=== PATIENT | male | born 1995 | race Caucasian/White ===

== ENCOUNTER 2017-01-16 22:27 | Emergency (ER) | payer BC, OTHER ==
[~2017-01-16] VITALS: Ht 175.3 cm; Wt 83.0 kg
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
--- OUTSIDE RECORDS SUMMARY | 2017-01-16 22:34 | XMS REPORT ---
Author Author LIZZY MCKNIGHT [facility] Address [address] [place], [place] [id number] Care Team Providers Care Branch Manager Name Role Phone LIZZY MCKNIGHT PCP Unavailable [...] oral route once daily for 10 days erythromycin-benzoyl peroxide 3-5 % topical gel 04/02/2015 apply to the affected area(s) by topical route 2 times per day in the morning and evening Name Start Date Expiration Date SIG Comments [...] CVX Meningococcal 12/07/2012 sanofi pasteur PMC Menactra [id number] Intramuscular Left Deltoid 12/07/2012 02/07/2011 136 HPV 12/07/2012 Merck & Co., Inc. MSD GARDASIL [id number] Intramuscular Right Deltoid 12/07/2012 09/10/2012 62 HPV 02/14/2013 [employer]ck [employer] Co[employer] MSD GARDASIL [id number] Intramuscular Right Deltoid 02/14/2013 06/18/2011 62 History [...] Group Number Start Date [facility] [place] [id number] April [facility] [place] void Friday, 2012 [facility] [place] void Friday, 2007 History of Encounters Visit Date Visit Type Provider 03/06/2015 Office visit LIZZY MCKNIGHT STITCHER SPECIAL MACHINE 09/14/2014 Office visit LIZZY MCKNIGHT STITCHER SPECIAL MACHINE 06/12/2014 Office visit LIZZY MCKNIGHT STITCHER SPECIAL MACHINE 06/17/2013 Office visit LIZZY MCKNIGHT STITCHER SPECIAL MACHINE 02/14/2013 Nurse visit LIZZY MCKNIGHT STITCHER SPECIAL MACHINE 12/07/2012 Nurse visit LIZZY MCKNIGHT STITCHER SPECIAL MACHINE 11/17/2012 Office visit LIZZY MCKNIGHT STITCHER SPECIAL MACHINE 11/08/2012 Office visit LIZZY MCKNIGHT STITCHER SPECIAL MACHINE 06/30/2012 Office visit LIZZY MCKNIGHT STITCHER SPECIAL MACHINE 06/09/2012 Office visit LIZZY MCKNIGHT STITCHER SPECIAL MACHINE 03/22/2012 Office visit LIZZY MCKNIGHT STITCHER SPECIAL MACHINE 02/23/2012 Office visit LIZZY MCKNIGHT STITCHER SPECIAL MACHINE 12/11/2011 Office visit LIZZY MCKNIGHT STITCHER SPECIAL MACHINE 11/28/2011 Office visit LIZZY MCKNIGHT STITCHER SPECIAL MACHINE 03/03/2011 Office visit LIZZY MCKNIGHT STITCHER SPECIAL MACHINE 02/28/2011 Office visit LIZZY MCKNIGHT STITCHER SPECIAL MACHINE 01/23/2011 Nurse visit Lizzy Mcknight STITCHER SPECIAL MACHINE 12/23/2010 Office visit Lizzy Mcknight STITCHER SPECIAL MACHINE 11/14/2010 Office visit Lizzy Mcknight STITCHER SPECIAL MACHINE 09/06/2010 Office visit Lizzy Mcknight STITCHER SPECIAL MACHINE 07/08/2010 Office visit Lizzy Mcknight STITCHER SPECIAL MACHINE 05/02/2010 Office visit Lizzy Mcknight STITCHER SPECIAL MACHINE 01/10/2010 Office visit Lizzy Mcknight STITCHER SPECIAL MACHINE
--- OUTSIDE RECORDS SUMMARY | 2017-01-16 22:34 | XMS REPORT ---
Author Author Lizzy Mcknight [facility] Address [address] [place], [place] [id number] Care Team Providers Care Filter Tank Operator Name Role Phone Lizzy Mcknight PCP Unavailable Allergies and Adverse Reactions Name Reaction Notes NO KNOWN DRUG ALLERGIES Plan of Treatment Not available. Medications Name Start Date Expiration Date SIG Comments Amoxicillin Oral Capsule 500 mg 01/21/2010 01/31/2010 take 1 capsule (500 mg) by oral route every 8 hours for 10 days Ocuflox Ophthalmic Drops 0.3 % 07/08/2010 apply 1 drop into affected eye(s ) by ophthalmic route every 4 hours for 2 days then 1 drop four times daily for 5 days Amoxicillin Oral Tablet 875 mg 07/12/2010 07/22/2010 take 1 tablet (875 mg) by oral route every 12 hours for 10 days nystatin Topical Powder 100,000 unit/g 09/06/2010 apply to the affected area(s) by topical route 2 times per day terbinafine Oral Tablet 250 mg 09/06/2010 09/20/2010 take 1 tablet by oral route daily for 14 days cefdinir Oral Capsule 300 mg 11/28/2011 12/08/2011 take 1 capsule (300 mg) by oral route every 12 hours for 10 days Singulair Oral tablet, chewable 5 mg 12/03/2011 chew 1 tablet by oral route daily cefdinir Oral capsule 300 mg 12/11/2011 12/18/2011 take 1 capsule by oral route 2 times a day for 7 days Bactrim DS Oral tablet 800-160 mg 02/23/2012 03/04/2012 take 1 tablet by oral route every 12 hours for 10 days cefdinir Oral capsule 300 mg 03/22/2012 04/01/2012 take 1 capsule (300 mg) by oral route every 12 hours for 10 days Polytrim Ophthalmic Drops 0.1-10,000 %-unit/mL 06/09/2012 instill 2 drops into both eyes by ophthalmic route every 4 hours Silvadene Topical Cream 1 % 06/28/2012 apply a 116 inch (1.5 mm) thick layer to entire burn area by topical route 2 times per day fluticasone Nasal [place], Suspension 50 mcg/actuation 11/17/2012 inhale 1 spray (50 mcg) in each nostril by intranasal route 2 times per day amoxicillin-pot clavulanate Oral tablet 875-125 mg 11/17/2012 11/27/2012 take 1 tablet by oral route every 12 hours for 10 days prednisone oral tablet 10 mg 06/17/2013 50mg PO QD x 4 days, 30mg PO QD x 4 days, 10mg PO QD x4 days prednisone oral tablet 20 mg 06/12/2014 60mg PO QD x 4 days then, 40mg PO QD x 3 days then, 20mg PO QD x 3 days Discontinued Name Start Date Discontinued Date SIG Comments Singulair Oral Tablet, Chewable 5 mg 05/02/2010 chew 2 tablets (10 mg) by oral route once daily in the evening Zyrtec Oral Tablet 10 mg 05/02/2010 Problem List Description Status Onset Allergic rhinitis Active Brain Injury Active Vital Signs Date Time BP-Sys(mm[Hg] BP-Susan(mm[Hg]) HR(bpm) RR(rpm) Temp WT HT HC BMI BSA BMI Percentile O2 Sat(%) 06/12/2014 1:32:00 PM 116 mmHg 60 mmHg 54 bpm 18 rpm 97.5 F 176 lbs 100 % 06/17/2013 10:37:00 AM 116 mmHg 68 mmHg 52 bpm 20 rpm 96.9 F 158 lbs 100 % 11/17/2012 11:06:00 AM 90 mmHg 52 mmHg 55 bpm 18 rpm 97.8 F 147 lbs 66 in 23.7262 kg/m 1.76 m2 86.2 % 98 % 11/08/2012 2:42:00 PM 110 mmHg 62 mmHg 62 bpm 20 rpm 97.2 F 147 lbs 66 in 23.73 kg/m2 1.7621 m 86.2 % 99 % 06/30/2012 3:47:00 PM 116 mmHg 60 mmHg 87 bpm 18 rpm 97.8 F 141 lbs 65.5 in 23.1065 kg/m 1.72 m2 84.5 % 99 % 06/09/2012 1:36:00 PM 118 mmHg 64 mmHg 77 bpm 18 rpm 96.8 F 141 lbs 63.5 in 24.58 kg/m2 1.6928 m 90.7 % 98 % 03/22/2012 3:48:00 PM 116 mmHg 64 mmHg 74 bpm 18 rpm 96.8 F 139 lbs 98 % 02/23/2012 4:44:00 PM 100 mmHg 68 mmHg 72 bpm 18 rpm 97.2 F 134 lbs 63.5 in 23.36 kg/m2 1.6502 m 87.1 % 98 % 12/11/2011 2:05:00 PM 98 mmHg 67 mmHg 67 bpm 18 rpm 97.8 F 127 lbs 63 in 22.4968 kg/m 1.60 m2 83.6 % 98 % 11/28/2011 8:10:00 AM [...] X-RAY EXAM RIBS UNI 2 VIEWS Reviewed 12/07/2012 12:00 AM IMMUNIZATION ADMIN Reviewed 12/07/2012 12:00 AM HPV VACCINE 4 VALENT IM Reviewed 12/07/2012 12:00 AM MENINGOCOCCAL VACCINE IM Reviewed 02/14/2013 12:00 AM IMMUNIZATION ADMIN Reviewed 02/14/2013 12:00 AM HPV VACCINE 4 VALENT IM Reviewed 05/02/2010 12:00 AM X-RAY EXAM [...] CVX Meningococcal 12/07/2012 sanofi pasteur PMC Menactra [id number] Intramuscular Left Deltoid 12/07/2012 02/07/2011 136 HPV 12/07/2012 Merck & Co., Inc. MSD GARDASIL [id number] Intramuscular Right Deltoid 12/07/2012 09/10/2012 62 HPV 02/14/2013 [employer]ck [employer] Co[employer] MSD GARDASIL [id number] Intramuscular Right Deltoid 02/14/2013 06/18/2011 62 History [...] Nevus 2014 6:55AM Allergic rhinitis 2014 6:55AM Payers Insurance Name Company Name Plan Name Plan Number Policy Number Policy Group Number Start Date [facility] [id number] April [facility] Friday, 2012 [facility] Friday, 2007 History of Encounters Visit Date Visit Type Provider 09/14/2014 Office visit LIZZY MCKNIGHT MILL REPRESENTATIVE 06/12/2014 Office visit LIZZY MCKNIGHT MILL REPRESENTATIVE 06/17/2013 Office visit LIZZY MCKNIGHT MILL REPRESENTATIVE 02/14/2013 Nurse visit LIZZY MCKNIGHT MILL REPRESENTATIVE 12/07/2012 Nurse visit LIZZY MCKNIGHT MILL REPRESENTATIVE 11/17/2012 Office visit LIZZY MCKNIGHT MILL REPRESENTATIVE 11/08/2012 Office visit LIZZY MCKNIGHT MILL REPRESENTATIVE 06/30/2012 Office visit LIZZY MCKNIGHT MILL REPRESENTATIVE 06/09/2012 Office visit LIZZY MCKNIGHT MILL REPRESENTATIVE 03/22/2012 Office visit LIZZY MCKNIGHT MILL REPRESENTATIVE 02/23/2012 Office visit LIZZY MCKNIGHT MILL REPRESENTATIVE 12/11/2011 Office visit LIZZY MCKNIGHT MILL REPRESENTATIVE 11/28/2011 Office visit LIZZY MCKNIGHT MILL REPRESENTATIVE 03/03/2011 Office visit LIZZY MCKNIGHT MILL REPRESENTATIVE 02/28/2011 Office visit LIZZY MCKNIGHT MILL REPRESENTATIVE 01/23/2011 Nurse visit Lizzy Mcknight MILL REPRESENTATIVE 12/23/2010 Office visit Lizzy Mcknight MILL REPRESENTATIVE 11/14/2010 Office visit Lizzy Mcknight MILL REPRESENTATIVE 09/06/2010 Office visit Lizzy Mcknight MILL REPRESENTATIVE 07/08/2010 Office visit Lizzy Mcknight MILL REPRESENTATIVE 05/02/2010 Office visit Lizzy Mcknight MILL REPRESENTATIVE 01/10/2010 Office visit Lizzy Mcknight MILL REPRESENTATIVE
--- OUTSIDE RECORDS SUMMARY | 2017-01-16 22:34 | XMS REPORT ---
Author Author LIZZY MCKNIGHT [facility] Address [address] [place], [place] [id number] Care Team Providers Care Film Composer Name Role Phone LIZZY MCKNIGHT PCP Unavailable [...] CVX Meningococcal 12/07/2012 sanofi pasteur PMC Menactra [id number] Intramuscular Left Deltoid 12/07/2012 02/07/2011 136 HPV 12/07/2012 Merck & Co., Inc. MSD GARDASIL [id number] Intramuscular Right Deltoid 12/07/2012 09/10/2012 62 HPV 02/14/2013 Merck & Co., Inc[employer] MSD GARDASIL [id number] Intramuscular Right Deltoid 02/14/2013 06/18/2011 62 History [...] Group Number Start Date [facility] [place] [id number] April [facility] [place] void Friday, 2012 [facility] [place] void Friday, 2007 History of Encounters Visit Date Visit Type Provider 03/06/2015 Office visit LIZZY MCKNIGHT AUDOGRAPH OPERATOR 09/14/2014 Office visit LIZZY MCKNIGHT AUDOGRAPH OPERATOR 06/12/2014 Office visit LIZZY MCKNIGHT AUDOGRAPH OPERATOR 06/17/2013 Office visit LIZZY MCKNIGHT AUDOGRAPH OPERATOR 02/14/2013 Nurse visit LIZZY MCKNIGHT AUDOGRAPH OPERATOR 12/07/2012 Nurse visit LIZZY MCKNIGHT AUDOGRAPH OPERATOR 11/17/2012 Office visit LIZZY MCKNIGHT AUDOGRAPH OPERATOR 11/08/2012 Office visit LIZZY MCKNIGHT AUDOGRAPH OPERATOR 06/30/2012 Office visit LIZZY MCKNIGHT AUDOGRAPH OPERATOR 06/09/2012 Office visit LIZZY MCKNIGHT AUDOGRAPH OPERATOR 03/22/2012 Office visit LIZZY MCKNIGHT AUDOGRAPH OPERATOR 02/23/2012 Office visit LIZZY MCKNIGHT AUDOGRAPH OPERATOR 12/11/2011 Office visit LIZZY MCKNIGHT AUDOGRAPH OPERATOR 11/28/2011 Office visit LIZZY MCKNIGHT AUDOGRAPH OPERATOR 03/03/2011 Office visit LIZZY MCKNIGHT AUDOGRAPH OPERATOR 02/28/2011 Office visit LIZZY MCKNIGHT AUDOGRAPH OPERATOR 01/23/2011 Nurse visit Lizzy Mcknight AUDOGRAPH OPERATOR 12/23/2010 Office visit Lizzy Mcknight AUDOGRAPH OPERATOR 11/14/2010 Office visit Lizzy Mcknight AUDOGRAPH OPERATOR 09/06/2010 Office visit Lizzy Mcknight AUDOGRAPH OPERATOR 07/08/2010 Office visit Lizzy Mcknight AUDOGRAPH OPERATOR 05/02/2010 Office visit Lizzy Mcknight AUDOGRAPH OPERATOR 01/10/2010 Office visit Lizzy Mcknight AUDOGRAPH OPERATOR
--- OUTSIDE RECORDS SUMMARY | 2017-01-16 22:35 | XMS REPORT ---
Author Author Lizzy Mcknight [facility] Address [address] [place], [place] [id number] Care Team Providers Care Diabetes Trainer Name Role Phone Lizzy Mcknight PCP Unavailable Allergies and Adverse Reactions Name Reaction Notes NO KNOWN DRUG ALLERGIES Plan of Treatment Not available. Medications Active Name Start Date Estimated Completion Date SIG Comments prednisone oral tablet 20 mg 06/12/2014 60mg PO QD x 4 days then, 40mg PO QD x 3 days then, 20mg PO QD x 3 days Name Start Date Expiration Date SIG [...] Topical Cream 1 % 06/28/2012 apply a 1/16 inch (1.5 mm) thick layer to entire burn area by topical route 2 times per day fluticasone Nasal [place], Suspension 50 mcg/actuation 11/17/2012 inhale 1 spray (50 mcg) in each nostril by intranasal route 2 times per day amoxicillin-pot clavulanate Oral tablet 875-125 mg 11/17/2012 11/27/2012 take 1 tablet by oral route every 12 hours for 10 days prednisone oral tablet 10 mg 06/17/2013 50mg PO QD x 4 days, 30mg PO QD x 4 days, 10mg PO QD x4 days Discontinued Name Start Date Discontinued Date [...] CVX Meningococcal 12/07/2012 sanofi pasteur PMC Menactra [id number] Intramuscular Left Deltoid 12/07/2012 02/07/2011 136 HPV 12/07/2012 [employer]ck & Co., Inc. MSD GARDASIL [id number] Intramuscular Right Deltoid 12/07/2012 09/10/2012 62 HPV 02/14/2013 [employer]ck [employer] Co[employer] MSD GARDASIL [id number] Intramuscular Right Deltoid 02/14/2013 06/18/2011 62 History [...] 10:40AM Contact dermatitis Jun 12 2014 1:34PM Payers Insurance Name Company Name Plan Name Plan Number Policy Number Policy Group Number [id number], 2007 History of Encounters Visit Date Visit Type Provider 09/14/2014 Office visit LIZZY MCKNIGHT JAVA SYBASE DEVELOPER 06/12/2014 Office visit LIZZY MCKNIGHT JAVA SYBASE DEVELOPER 06/17/2013 Office visit LIZZY MCKNIGHT JAVA SYBASE DEVELOPER 02/14/2013 Nurse visit LIZZY MCKNIGHT JAVA SYBASE DEVELOPER 12/07/2012 Nurse visit LIZZY MCKNIGHT JAVA SYBASE DEVELOPER 11/17/2012 Office visit LIZZY MCKNIGHT JAVA SYBASE DEVELOPER 11/08/2012 Office visit LIZZY MCKNIGHT JAVA SYBASE DEVELOPER 06/30/2012 Office visit LIZZY MCKNIGHT JAVA SYBASE DEVELOPER 06/09/2012 Office visit LIZZY MCKNIGHT JAVA SYBASE DEVELOPER 03/22/2012 Office visit LIZZY MCKNIGHT JAVA SYBASE DEVELOPER 02/23/2012 Office visit LIZZY MCKNIGHT JAVA SYBASE DEVELOPER 12/11/2011 Office visit LIZZY MCKNIGHT JAVA SYBASE DEVELOPER 11/28/2011 Office visit LIZZY MCKNIGHT JAVA SYBASE DEVELOPER 03/03/2011 Office visit LIZZY MCKNIGHT JAVA SYBASE DEVELOPER 02/28/2011 Office visit LIZZY MCKNIGHT JAVA SYBASE DEVELOPER 01/23/2011 Nurse visit Lizzy Mcknight JAVA SYBASE DEVELOPER 12/23/2010 Office visit Lizzy Mcknight JAVA SYBASE DEVELOPER 11/14/2010 Office visit Lizzy Mcknight JAVA SYBASE DEVELOPER 09/06/2010 Office visit Lizzy Mcknight JAVA SYBASE DEVELOPER 07/08/2010 Office visit Lizzy Mcknight JAVA SYBASE DEVELOPER 05/02/2010 Office visit Lizzy Mcknight JAVA SYBASE DEVELOPER 01/10/2010 Office visit Lizzy Mcknight JAVA SYBASE DEVELOPER
--- OUTSIDE RECORDS SUMMARY | 2017-01-16 22:35 | XMS REPORT ---
Author Author LIZZY MCKNIGHT [facility] Address [address] [place], [place] [id number] Care Team Providers Care Horse Identifier Name Role Phone LIZZY MCKNIGHT PCP Unavailable [...] CVX Meningococcal 12/07/2012 sanofi pasteur PMC Menactra [id number] Intramuscular Left Deltoid 12/07/2012 02/07/2011 136 HPV 12/07/2012 [employer] MSD GARDASIL [id number] Intramuscular Right Deltoid 12/07/2012 09/10/2012 62 HPV 02/14/2013 [employer]ck [employer] MSD GARDASIL [id number] Intramuscular Right Deltoid 02/14/2013 06/18/2011 62 History [...] Group Number Start Date [facility] [place] [id number] April [facility] [place] void Friday, 2012 [facility] [place] void Friday, 2007 History of Encounters Visit Date Visit Type Provider 03/06/2015 Office visit LIZZY MCKNIGHT BOTTOM SPRAYER 09/14/2014 Office visit LIZZY MCKNIGHT BOTTOM SPRAYER 06/12/2014 Office visit LIZZY MCKNIGHT BOTTOM SPRAYER 06/17/2013 Office visit LIZZY MCKNIGHT BOTTOM SPRAYER 02/14/2013 Nurse visit LIZZY MCKNIGHT BOTTOM SPRAYER 12/07/2012 Nurse visit LIZZY MCKNIGHT BOTTOM SPRAYER 11/17/2012 Office visit LIZZY MCKNIGHT BOTTOM SPRAYER 11/08/2012 Office visit LIZZY MCKNIGHT BOTTOM SPRAYER 06/30/2012 Office visit LIZZY MCKNIGHT BOTTOM SPRAYER 06/09/2012 Office visit LIZZY MCKNIGHT BOTTOM SPRAYER 03/22/2012 Office visit LIZZY MCKNIGHT BOTTOM SPRAYER 02/23/2012 Office visit LIZZY MCKINGHT BOTTOM SPRAYER 12/11/2011 Office visit LIZZY MCKNIGHT BOTTOM SPRAYER 11/28/2011 Office visit LIZZY MCKNIGHT BOTTOM SPRAYER 03/03/2011 Office visit LIZZY MCKNIGHT BOTTOM SPRAYER 02/28/2011 Office visit LIZZY MCKNIGHT BOTTOM SPRAYER 01/23/2011 Nurse visit Lizzy Mcknight BOTTOM SPRAYER 12/23/2010 Office visit Lizzy Mcknight BOTTOM SPRAYER 11/14/2010 Office visit Lizzy Mcknight BOTTOM SPRAYER 09/06/2010 Office visit Lizzy Mcknight BOTTOM SPRAYER 07/08/2010 Office visit Lizzy Mcknight BOTTOM SPRAYER 05/02/2010 Office visit Lizzy Mcknight BOTTOM SPRAYER 01/10/2010 Office visit Lizzy Mcknight BOTTOM SPRAYER
--- OUTSIDE RECORDS SUMMARY | 2017-01-16 22:36 | XMS REPORT ---
Author Author LIZZY MCKNIGHT [facility] Address [address] [place], [place] [id number] Care Team Providers Care [employer] Coxswain Name Role Phone LIZZY MCKNIGHT PCP Unavailable [...] CVX Meningococcal 12/07/2012 sanofi pasteur PMC Menactra [id number] Intramuscular Left Deltoid 12/07/2012 02/07/2011 136 HPV 12/07/2012 [employer]ck [employer] MSD GARDASIL [id number] Intramuscular Right Deltoid 12/07/2012 09/10/2012 62 HPV 02/14/2013 [employer]ck [employer] MSD GARDASIL [id number] Intramuscular Right Deltoid 02/14/2013 06/18/2011 62 History [...] Group Number Start Date [facility] [place] [id number] April [facility] [place] void Friday, 2012 [facility] [place] void Friday, 2007 History of Encounters Visit Date Visit Type Provider 03/06/2015 Office visit LIZZY MCKNIGHT BOOTMAKER 09/14/2014 Office visit LIZZY MCKNIGHT BOOTMAKER 06/12/2014 Office visit LIZZY MCKNIGHT BOOTMAKER 06/17/2013 Office visit LIZZY MCKNIGHT BOOTMAKER 02/14/2013 Nurse visit LIZZY MCKNIGHT BOOTMAKER 12/07/2012 Nurse visit LIZZY MCKNIGHT BOOTMAKER 11/17/2012 Office visit LIZZY MCKNIGHT BOOTMAKER 11/08/2012 Office visit LIZZY MCKNIGHT BOOTMAKER 06/30/2012 Office visit LIZZY MCKNIGHT BOOTMAKER 06/09/2012 Office visit LIZZY MCKNIGHT BOOTMAKER 03/22/2012 Office visit LIZZY MCKNIGHT BOOTMAKER 02/23/2012 Office visit LIZZY MCKNIGHT BOOTMAKER 12/11/2011 Office visit LIZZY MCKNIGHT BOOTMAKER 11/28/2011 Office visit LIZZY MCKNIGHT BOOTMAKER 03/03/2011 Office visit LIZZY MCKNIGHT BOOTMAKER 02/28/2011 Office visit LIZZY MCKNIGHT BOOTMAKER 01/23/2011 Nurse visit Lizzy Mcknight BOOTMAKER 12/23/2010 Office visit Lizzy Mcknight BOOTMAKER 11/14/2010 Office visit Lizzy Mcknight BOOTMAKER 09/06/2010 Office visit Lizzy Mcknight BOOTMAKER 07/08/2010 Office visit Lizzy Mcknight BOOTMAKER 05/02/2010 Office visit Lizzy Mcknight BOOTMAKER 01/10/2010 Office visit Lizzy Mcknight BOOTMAKER
--- OUTSIDE RECORDS SUMMARY | 2017-01-16 22:37 | XMS REPORT ---
Author Author LIZZY MCKNIGHT [facility] Address [address] [place], [place] [id number] Care Team Providers Care Operator Specialist Communications Name Role Phone LIZZY MCKNIGHT PCP Unavailable [...] CVX Meningococcal 12/07/2012 sanofi pasteur PMC Menactra [id number] Intramuscular Left Deltoid 12/07/2012 02/07/2011 136 HPV 12/07/2012 [employer]ck [employer] MSD GARDASIL [id number] Intramuscular Right Deltoid 12/07/2012 09/10/2012 62 HPV 02/14/2013 [employer]ck [employer] MSD GARDASIL [id number] Intramuscular Right Deltoid 02/14/2013 06/18/2011 62 History [...] Group Number Start Date [facility] [place] [id number] April [facility] [place] void Friday, 2012 [facility] [place] void Friday, 2007 History of Encounters Visit Date Visit Type Provider 03/06/2015 Office visit LIZZY MCKNIGHT FORENSIC INVESTIGATOR 09/14/2014 Office visit LIZZY MCKNIGHT FORENSIC INVESTIGATOR 06/12/2014 Office visit LIZZY MCKNIGHT FORENSIC INVESTIGATOR 06/17/2013 Office visit LIZZY MCKNIGHT FORENSIC INVESTIGATOR 02/14/2013 Nurse visit LIZZY MCKNIGHT FORENSIC INVESTIGATOR 12/07/2012 Nurse visit LIZZY MCKNIGHT FORENSIC INVESTIGATOR 11/17/2012 Office visit LIZZY MCKNIGHT FORENSIC INVESTIGATOR 11/08/2012 Office visit LIZZY MCKNIGHT FORENSIC INVESTIGATOR 06/30/2012 Office visit LIZZY MCKNIGHT FORENSIC INVESTIGATOR 06/09/2012 Office visit LIZZY MCKNIGHT FORENSIC INVESTIGATOR 03/22/2012 Office visit LIZZY MCKNIGHT FORENSIC INVESTIGATOR 02/23/2012 Office visit LIZZY MCKNIGHT FORENSIC INVESTIGATOR 12/11/2011 Office visit LIZZY MCKNIGHT FORENSIC INVESTIGATOR 11/28/2011 Office visit LIZZY MCKNIGHT FORENSIC INVESTIGATOR 03/03/2011 Office visit LIZZY MCKNIGHT FORENSIC INVESTIGATOR 02/28/2011 Office visit LIZZY MCKNIGHT FORENSIC INVESTIGATOR 01/23/2011 Nurse visit Lizzy Mcknight FORENSIC INVESTIGATOR 12/23/2010 Office visit Lizzy Mcknight FORENSIC INVESTIGATOR 11/14/2010 Office visit Lizzy Mcknight FORENSIC INVESTIGATOR 09/06/2010 Office visit Lizzy Mcknight FORENSIC INVESTIGATOR 07/08/2010 Office visit Lizzy Mcknight FORENSIC INVESTIGATOR 05/02/2010 Office visit Lizzy Mcknight FORENSIC INVESTIGATOR 01/10/2010 Office visit Lizzy Mcknight FORENSIC INVESTIGATOR
--- OUTSIDE RECORDS SUMMARY | 2017-01-16 22:37 | XMS REPORT ---
Author Author Lizzy Mcknight [facility] Address [address] [place], [place] [phone] Care Team Providers Care Lime Plant Operator Name Role Phone Lizzy Mcknight PCP [...] route 2 times per day fluticasone Nasal [place], Suspension 50 mcg/actuation 11/17/2012 inhale 1 spray [...] CVX Meningococcal 12/07/2012 sanofi pasteur PMC Menactra [id number] Intramuscular Left Deltoid 12/07/2012 02/07/2011 136 HPV 12/07/2012 Merck & [employer]., Inc[employer] MSD GARDASIL [id number] Intramuscular Right Deltoid 12/07/2012 09/10/2012 62 HPV 02/14/2013 [employer]ck [employer] MSD GARDASIL [id number] Intramuscular Right Deltoid 02/14/2013 06/18/2011 62 History [...] Policy Number [id number] History of Encounters Visit Date Visit Type Provider 09/14/2014 Office visit LIZZY MCKNIGHT HAND FLATWORK FINISHER 06/12/2014 Office visit LIZZY MCKNIGHT HAND FLATWORK FINISHER 06/17/2013 Office visit LIZZY MCKNIGHT HAND FLATWORK FINISHER 02/14/2013 Nurse visit LIZZY MCKNIGHT HAND FLATWORK FINISHER 12/07/2012 Nurse visit LIZZY MCKNIGHT HAND FLATWORK FINISHER 11/17/2012 Office visit LIZZY MCKNIGHT HAND FLATWORK FINISHER 11/08/2012 Office visit LIZZY MCKNIGHT HAND FLATWORK FINISHER 06/30/2012 Office visit LIZZY MCKNIGHT HAND FLATWORK FINISHER 06/09/2012 Office visit LIZZY MCKNIGHT HAND FLATWORK FINISHER 03/22/2012 Office visit LIZZY MCKNIGHT HAND FLATWORK FINISHER 02/23/2012 Office visit LIZZY MCKNIGHT HAND FLATWORK FINISHER 12/11/2011 Office visit LIZZY MCKNIGHT HAND FLATWORK FINISHER 11/28/2011 Office visit LIZZY MCKNIGHT HAND FLATWORK FINISHER 03/03/2011 Office visit LIZZY MCKNIGHT HAND FLATWORK FINISHER 02/28/2011 Office visit LIZZY MCKNIGHT HAND FLATWORK FINISHER 01/23/2011 Nurse visit Lizzy Mcknight HAND FLATWORK FINISHER 12/23/2010 Office visit Lizzy Mcknight HAND FLATWORK FINISHER 11/14/2010 Office visit Lizzy Mcknight HAND FLATWORK FINISHER 09/06/2010 Office visit Lizzy Mcknight HAND FLATWORK FINISHER 07/08/2010 Office visit Lizzy Mcknight HAND FLATWORK FINISHER 05/02/2010 Office visit Lizzy Mcknight HAND FLATWORK FINISHER 01/10/2010 Office visit Lizzy Mcknight HAND FLATWORK FINISHER
--- OUTSIDE RECORDS SUMMARY | 2017-01-16 22:38 | XMS REPORT ---
Author Author Lizzy Mcknight [facility] Address [address] [place], [place] [phone] Care Team Providers Care Information Assoc Name Role Phone Lizzy Mcknight PCP Unavailable [...] route 2 times per day fluticasone Nasal [place], Suspension 50 mcg/actuation 11/17/2012 inhale 1 spray [...] CVX Meningococcal 12/07/2012 sanofi pasteur PMC Menactra [id number] Intramuscular Left Deltoid 12/07/2012 02/07/2011 136 HPV 12/07/2012 Merck & Co., Inc[employer] MSD GARDASIL [id number] Intramuscular Right Deltoid 12/07/2012 09/10/2012 62 HPV 02/14/2013 [employer]ck [employer] MSD GARDASIL [id number] Intramuscular Right Deltoid 02/14/2013 06/18/2011 62 History [...] Policy Number Policy [facility] Number [id number] History of Encounters Visit Date Visit Type Provider 09/14/2014 Office visit LIZZY MCKNIGHT HEALTH AND SAFETY REPRESENTATIVE 06/12/2014 Office visit LIZZY MCKNIGHT HEALTH AND SAFETY REPRESENTATIVE 06/17/2013 Office visit LIZZY MCKNIGHT HEALTH AND SAFETY REPRESENTATIVE 02/14/2013 Nurse visit LIZZY MCKNIGHT HEALTH AND SAFETY REPRESENTATIVE 12/07/2012 Nurse visit LIZZY MCKNIGHT HEALTH AND SAFETY REPRESENTATIVE 11/17/2012 Office visit LIZZY MCKNIGHT HEALTH AND SAFETY REPRESENTATIVE 11/08/2012 Office visit LIZZY MCKNIGHT HEALTH AND SAFETY REPRESENTATIVE 06/30/2012 Office visit LIZZY MCKNIGHT HEALTH AND SAFETY REPRESENTATIVE 06/09/2012 Office visit LIZZY MCKNIGHT HEALTH AND SAFETY REPRESENTATIVE 03/22/2012 Office visit LIZZY MCKNIGHT HEALTH AND SAFETY REPRESENTATIVE 02/23/2012 Office visit LIZZY MCKNIGHT HEALTH AND SAFETY REPRESENTATIVE 12/11/2011 Office visit LIZZY MCKNIGHT HEALTH AND SAFETY REPRESENTATIVE 11/28/2011 Office visit LIZZY MCKNIGHT HEALTH AND SAFETY REPRESENTATIVE 03/03/2011 Office visit LIZZY MCKNIGHT HEALTH AND SAFETY REPRESENTATIVE 02/28/2011 Office visit LIZZY MCKNIGHT HEALTH AND SAFETY REPRESENTATIVE 01/23/2011 Nurse visit Lizzy Mcknight HEALTH AND SAFETY REPRESENTATIVE 12/23/2010 Office visit Lizzy Mcknight HEALTH AND SAFETY REPRESENTATIVE 11/14/2010 Office visit Lizzy Mcknight HEALTH AND SAFETY REPRESENTATIVE 09/06/2010 Office visit Lizzy Mcknight HEALTH AND SAFETY REPRESENTATIVE 07/08/2010 Office visit Lizzy Mcknight HEALTH AND SAFETY REPRESENTATIVE 05/02/2010 Office visit Lizzy Mcknight HEALTH AND SAFETY REPRESENTATIVE 01/10/2010 Office visit Lizzy Mcknight HEALTH AND SAFETY REPRESENTATIVE
--- OUTSIDE RECORDS SUMMARY | 2017-01-16 22:38 | XMS REPORT | Continuity of Care Document ---
Author Author [facility] Address Unknown Phone Unavailable Allergies Medications Problems Procedures Results Encounters ACCT No. Visit Date/Time Discharge Status Pt. Type Provider Facility Loc./Unit Complaint [id number] 03/06/2015 16:58:58 03/06/2015 23: 59:59 [facility] Outpatient LIZZY THOMPSON [id number] 12/04/2014 21:33:04 12/04/2014 23: 59:59 [facility] Outpatient LIZZY THOMPSON [id number] 06/17/2013 11:36:12 06/17/2013 23: 59:59 [facility] Outpatient LIZZY THOMPSON [id number] 04/14/2013 11:41:55 Document Registration
[2017-01-16] MEDS: LIDOCAINE 2% 20 ML (XYLOCAINE) VIAL ONE (22:50)
--- NOTE | 2017-01-16 23:03 | ED Integumentary General ---
General Chief Complaint: Laceration Stated Complaint: HEAD LAC Nursing Triage Note: PT HAS3 CM LAC TO R [facility]OROASTRIANISM AREA. Source: patient Exam Limitations: no limitations History of Present Illness Time seen by provider: 22:58 Initial Comments Laceration to right orthodox from a gate that he was trying to open when it finally flew open. A sharp piece struck him on the left side of his face. Tetanus updated in last 5 years. No LOC or headache. Timing/Duration: just prior to arrival Severity: mild Associated Symptoms: denies symptoms Constitutional: see HPI EENTM: see HPI Respiratory: no symptoms reported Cardiovascular: no symptoms reported Genitourinary: no symptoms reported Musculoskeletal: no symptoms reported Skin: see HPI Psychiatric/Neurological: No Symptoms Reported Endocrine: No Symptoms Reported Past Kutthnx-Kpimiy-Udhwka Hx Patient Social History Alcohol Use: Denies Use Recreational Drug Use: No Smoking Status: Never a Smoker 2nd Hand Smoke Exposure: No Recent Foreign Travel: No Contact w/Someone Who Travel: No Recent Infectious Disease Expo: No Recent Hopitalizations: No Ebola Symptoms: Denies Symptoms Listed Physical Abuse: No Sexual Abuse: No Immunizations Up To Date Tetanus Booster (TDap): Less than 5yrs Seasonal Allergies Seasonal Allergies: No Surgeries History of Surgeries: No Psychosocial Suicide Risk Score: 0 Physical Exam Vital Signs Vital Sign - Last 12Hours 01/16/ 22:45 Temp 98.1 Pulse 68 Resp 18 B/P (MAP) 120/84 Capillary Refill : Less Than 3 Seconds General Appearance: WD/WN, no apparent distress HEENT: PERRL/EOMI, normal ENT inspection Respiratory: no respiratory distress, no accessory muscle use Gastrointestinal: non tender, soft Neurologic/Psychiatric: alert, normal mood/affect, oriented x 3 Skin: normal color, warm/dry Comments 3cm laceration to right orthodox. Depth to muscle fascia. Bleeding easily controlled. Laceration Repair : Wound Location: Face Wound Length (cm): 3 Wound's Depth, Shape: sub Q Wound Explored: clean Irrigated w/ Saline (ccs): 40 Betadine Prep?: Yes Volume Anesthetic (ccs): 3 Suture: Prolene Suture Size: 5-0 Number of Sutures: 1 Layer Closure?: 1 Number Deep Layer Sutures: 0 Progress Anesthetized with 3ml of 2% lidocaine without epinephrine. Scrubbed with chlorhexidine/saline solution. Irrigated with the same totaling 40ml. Closed with one continuous suture size 5-0 prolene. Progress/Results/Core Measures Results/Orders Vital Signs/I&O Vital Sign - Last 12Hours 01/16/17 22:45 Temp 98.1 Pulse 68 Resp 18 B/P (MAP) 120/84 Departure Impression Impression: Primary Impression: Face lacerations Disposition: HOME, SELF-CARE Condition: Stable Departure-Patient Inst. Decision time for Depature: 23:01 Referrals: NO,LOCAL PHYSICIAN (PCP/Family) Primary Care Physician Patient Instructions: Laceration Repair With Stitches (DC) Add. Discharge Instructions: 1. You may shower and wash and allow water to run over this 2. Return to er for any redness or pus like drainage that may indicate infection 3. Otherwise, leave it open to air after tonight (tonight cover with a bandaid so you dont get blood on your pillows) and have stitches removed in 5-6 days which would be on or around 01/22. All discharge instructions reviewed with patient and/or family. Voiced understanding. POOJA MYAEN APRN Jan 16, 2017 23:03
== END 2017-01-16 23:04 | disposition home or self-care (01) ==
LOC: ER 22:30
DX: S01.81XA Laceration without foreign body of other part of head, initial encounter (principal); W26.8XXA Contact with other sharp object(s), not elsewhere classified, initial encounter
CPT/HCPCS: 99282